=== PATIENT | female | born 1995 ===

== ENCOUNTER 2017-02-03 18:43 | Emergency (ER) | payer OTHER ==
[2017-02-03 18:50] VITALS: BP 117/87; PULSE 76; RESP 16; TEMP 98.8; O2SAT 100
--- NOTE | 2017-02-03 19:23 | ED PDOC ---
HPI: Psych/Substance Abuse Time Seen by Provider: 02/03/17 18:57 Chief Complaint (Nursing): Psychiatric Evaluation Chief Complaint (Provider): Psychiatric Evaluation History Per: Patient History/Exam Limitations: no limitations Onset/Duration Of Symptoms: Hrs Current Symptoms Are (Timing): Better Additional Complaint(s): 21 y/o female, male gender, presents to the emergency department via EMS for psychiatric evaluation and is unaware who called the police prior to arrival. Reports experiencing suicidal ideation this morning without a plan after his depression kicked in when his 15 y/o sister told him she does not want him in her life anymore. States he takes testosterone IM weekly. Denies receiving treatment for depression, and current suicidal or homicidal ideation. Past Medical History Reviewed: Historical Data, Nursing Documentation, Vital Signs Vital Signs: Last Vital Signs Temp 98.8 F 02/03/17 18:48 Pulse 76 02/03/17 18:48 Resp 16 02/03/17 18:48 BP 117/87 02/03/17 18:48 Pulse Ox 100 02/03/17 18:48 - Medical History PMH: No Chronic Diseases - Surgical History Surgical History: No Surg Hx - Family History Family History: States: Unknown Family Hx - Living Arrangements Living Arrangements: With Family - Social History Current smoker - smoking cessation education provided: No Alcohol: None Drugs: Denies - Allergies Allergies/Adverse Reactions: Allergies Allergy/AdvReac Type Severity Reaction Status Date / Time No Known Allergies Allergy Verified 02/03/17 18:47 Review of Systems ROS Statement: Except As Marked, All Systems Reviewed And Found Negative Psych: Positive for: Depression, Suicidal ideation (This morning without a plan (had resolved since)). Negative for: Other (Homicidal ideation) Physical Exam - Reviewed Nursing Documentation Reviewed: Yes Vital Signs Reviewed: Yes - Physical Exam Appears: Positive for: Non-toxic, No Acute Distress Head Exam: Positive for: ATRAUMATIC, NORMAL INSPECTION, NORMOCEPHALIC Skin: Positive for: Normal Color, Warm, Dry Neck: Positive for: Normal, Supple Cardiovascular/Chest: Positive for: Regular Rate, Rhythm. Negative for: Murmur Respiratory: Positive for: Normal Breath Sounds. Negative for: Accessory Muscle Use, Respiratory Distress Gastrointestinal/Abdominal: Positive for: Normal Exam, Soft. Negative for: Tenderness Extremity: Positive for: Normal ROM. Negative for: Pedal Edema Neurologic/Psych: Positive for: Alert, Oriented - ECG O2 Sat by Pulse Oximetry: 100 (RA) Pulse Ox Interpretation: Normal Medical Decision Making Medical Decision Making: Time: 18:57 Initial Impression: Psychiatric Evaluation status post depression Initial Plan: --Crisis Evaluation STAT Scribe Attestation: Documented by Angeli Wong, acting as a scribe for Celeste Belcher. Provider Scribe Attestation: All medical record entries made by the Scribe were at my direction and personally dictated by me. I have reviewed the chart and agree that the record accurately reflects my personal performance of the history, physical exam, medical decision making, and the department course for this patient. I have also personally directed, reviewed, and agree with the discharge instructions and disposition. Disposition - Clinical Impression Clinical Impression: Depression - Patient ED Disposition Is Patient to be Admitted: No Counseled Patient/Family Regarding: Diagnosis, Need For Followup - Disposition Referrals: [facility] [Outside] Disposition: Routine/Home Disposition Time: 20:01 Condition: STABLE Instructions: Depression (ED)
== END 2017-02-03 20:28 | disposition home or self-care (01) ==
LOC: H.ER 18:43
DX: F32.9 Major depressive disorder, single episode, unspecified (principal); Z00.8 Encounter for other general examination